=== PATIENT | male | born 1960 | race Caucasian/White ===

== ENCOUNTER 2023-11-26 09:47 | Emergency (ER) | payer MEDICARE, SELFPAY ==
[2023-11-26] VITALS (13 sets, daily range): BP systolic 217–270; BP diastolic 124–170; PULSE 60–86; RESP 7–19; TEMP 36.5; O2SAT 95–98
--- NOTE | 2023-11-26 09:45 | RT.EKG_ITS ---
APPROVED REPORT Exam: Resting ECG Reason for Exam: htn Patient Location: E HR:79 bpm ECG Measurements Heart Rate 79 AXIS LA 164 P 34 QRSd 165 QRS 3 QT 444 T -31 QTc 508 Conclusion Sinus 79, occasional PVC, right bundle branch block, LVH, no STEMI
[2023-11-26 10:08] LABS: Abs Immature Grans 0.02 10^3/uL (0.0-0.06); Absolute Basophil Count 0.08 10^3/uL (0.0-0.2); Absolute Eosinophil Count 0.16 10^3/uL (0.0-0.7); Absolute Lymphocyte Count 2.33 10^3/uL (1.2-3.4); Absolute Monocyte Count 0.73 10^3/uL (0.1-0.8); Absolute Neutrophil Count 3.23 10^3/uL (1.2-6.7); Basophils % 1.2; Eosinophils % 2.4; HCT 53.2 % (40.0-50.0); HGB 17.8 g/dL (13.5-17.5); Immature Grans % 0.3; Lymphocytes % 35.6; MCH 28.3 pg (27.0-33.0); MCHC 33.5 % (32.0-36.0); MCV 84 fL (80-95); MPV 10.1 fL (8.0-11.0); Monocytes % 11.1; Neutrophils % 49.4; Platelet Count 256 10^3/uL (130-400); RDW 14.2 % (11.8-14.1); RDW-SD 43.5 fL; WBC 6.55 10^3/uL (4.4-10.8)
[2023-11-26 10:41] LABS: ALT 32 U/L (16-63); AST 22 U/L (15-37); Albumin 4.2 g/dL (3.4-5.0); Alkaline Phosphatase 80 U/L (46-116); Anion Gap 9.6 mmol/L (3-11); BUN 23 mg/dL (7-18); Bilirubin, Total 0.8 mg/dL (0.2-1.0); CO2 30.4 mmol/L (21.0-32.0); CREATININE 1.1 mg/dL (0.70-1.30); Calcium 9.2 mg/dL (8.5-10.1); Chloride 103 mmol/L (98-107); Estimated GFR 75.43 (mL/min/1.73m2); Glucose 103 mg/dL (74-106); NT-proBNP 215 pg/mL (<300); Potassium 3.8 mmol/L (3.5-5.1); Sodium 143 mmol/L (136-145); Total Protein 8.1 g/dL (6.4-8.2); Troponin I < 50 ng/L (< or =60)
[2023-11-26 10:51] LABS: Bilirubin Negative (Negative); Blood Negative (Negative); Clarity Clear (Clear); Glucose Negative (Negative); Ketones Negative (Negative); Leukocyte Esterase Negative (Negative); Nitrite Negative (Negative); Specific Gravity 1.015 (1.005-1.025); Urobilinogen 0.2 mg/dL (Up to 0.2)
--- NOTE | 2023-11-26 11:06 | ED.GENADUL_ITS ---
Discharge Plan Disposition Patient Disposition: Home Condition: Stable Discharge Details Clinical Impression: Uncontrolled hypertension, Non compliance w medication regimen Primary Care Provider: Douglas Salmeron ED Provider: Darlin Rushing Home Meds and New Rx's Prescriptions: No Action gelatin 600 mg capsule 1,000 mg PO BID Discharge Instructions Instructions: Hypertension (ED) Additional Instructions: Elevated blood pressure increases your risk for stroke, heart attack, renal disease and organ failure. Please follow-up with your primary care provider to discuss medication management for this ongoing disease. HPI General Date/Time Provider Initiated Documentation: 11/26/23 09:57 . Limitations to Documentation: no limitations . Information obtained by: patient . HPI Narrative: 63-year-old gentleman with past medical history of bilateral shoulder arthritis, hypertension and chronic Lyme disease presents for evaluation of elevated blood pressure. The patient was being evaluated in orthopedic clinic today and was referred to the emergency department for evaluation of his elevated blood pressure. The patient does not have any symptoms of high blood pressure. He states that he has not been taking his medication for several months because it makes him feel sick. He denies any symptoms of chest pain, shortness of breath, visual changes. Related Data Home Medications Medication Instructions Recorded Confirmed gelatin 600 mg capsule 1,000 mg PO BID 11/26/23 11/26/23 Allergies Allergy/AdvReac Type Severity Reaction Status Date / Time No Known Allergies Allergy Verified 11/26/23 09:54 General Stated Complaint: GenMedical ERROL: 3 Exam Narrative Exam Narrative: Review of Systems: All systems reviewed & are unremarkable except as noted in HPI and below Well-developed, no acute distress NCAT PERRL, normal conjunctiva RRR + hypertensive Unlabored respiratory effort, clear bilaterally Nondistended abdomen Extremities w/o deformity, no cyanosis, no edema No rashes or lesions. no focal neurologic deficits Appropriate mood and affect Course Vital Signs Vital signs: Vital Signs Temperature 36.5 C 11/26/23 09:51 Pulse 61 11/26/23 09:51 Respiratory Rate 18 11/26/23 09:51 Blood Pressure 266/162 H 11/26/23 09:51 Pulse Oximetry 97 11/26/23 09:51 Temperature 36.5 C 11/26/23 09:51 Temperature Source Skin 11/26/23 09:51 Pulse 75 11/26/23 10:50 Pulse 77 11/26/23 10:51 Respiratory Rate 14 11/26/23 10:51 Respiratory Effort Normal, Non-Labored 11/26/23 10:28 Respiratory Depth Normal 11/26/23 10:28 Respiratory Pattern Normal 11/26/23 10:28 Blood Pressure 247/140 H 11/26/23 10:50 Blood Pressure Mean 180 11/26/23 10:50 Blood Pressure Position Supine 11/26/23 10:28 Pulse Oximetry 95 11/26/23 10:51 Oxygen Delivery Method Room Air 11/26/23 09:51 Oxygen Flow Rate 0 11/26/23 09:51 Lab/Test Results Lab/Test Results: Laboratory Tests Range/Units 11/26/23 11/26/23 10:00 10:45 WBC (4.4-10.8) 10^3/uL 6.55 RBC (4.36-5.78) 10^6/uL 6.30 H Hgb (13.5-17.5) g/dL 17.8 H Hct (40.0-50.0) % 53.2 H MCV (80-95) fL 84 MCH (27.0-33.0) pg 28.3 MCHC (32.0-36.0) % 33.5 RDW (11.8-14.1) % 14.2 H Plt Count (130-400) 10^3/uL 256 MPV (8.0-11.0) fL 10.1 Immature Gran % 0.3 Neutrophils % 49.4 Lymphocytes % 35.6 Monocytes % 11.1 Eosinophils % 2.4 Basophils % 1.2 Nucleated RBC % (0.0-0.3) % 0.0 Absolute Neutrophils (1.2-6.7) 10^3/uL 3.23 Absolute Lymphocytes (1.2-3.4) 10^3/uL 2.33 Absolute Monocytes (0.1-0.8) 10^3/uL 0.73 Absolute Eosinophils (0.0-0.7) 10^3/uL 0.16 Absolute Basophils (0.0-0.2) 10^3/uL 0.08 Sodium (136-145) mmol/L 143 Potassium (3.5-5.1) mmol/L 3.8 Chloride (98-107) mmol/L 103 Carbon Dioxide (21.0-32.0) mmol/L 30.4 Anion Gap (3-11) mmol/L 9.6 BUN (7-18) mg/dL 23 H Creatinine (0.70-1.30) mg/dL 1.1 Est GFR (CKD-EPI 2020) (mL/min/1.73m2) 75.43 Glucose (74-106) mg/dL 103 Calcium (8.5-10.1) mg/dL 9.2 Total Bilirubin (0.2-1.0) mg/dL 0.8 AST (15-37) U/L 22 ALT (16-63) U/L 32 Alkaline Phosphatase (46-116) U/L 80 Troponin I (< or =60) ng/L < 50 NT-Pro-B Natriuret Pep (<300) pg/mL 215 Total Protein (6.4-8.2) g/dL 8.1 Albumin (3.4-5.0) g/dL 4.2 Urine Color (Yellow) Yellow Urine Clarity (Clear) Clear Urine pH (5-8) 7.0 Ur Specific Gateway (1.005-1.025) 1.015 Urine Protein (Neg-Trace) mg/dL Negative Urine Ketones (Negative) mg/dL Negative Urine Blood (Negative) Negative Urine Nitrite (Negative) Negative Urine Bilirubin (Negative) Negative Urine Urobilinogen (Up to 0.2) mg/dL 0.2 Ur Leukocyte Esterase (Negative) Negative Urine Glucose (Negative) mg/dL Negative Medical Decision Making Emergent evaluation of elevated blood pressure. Initial differential includes hypertensive emergency, medication noncompliance, endorgan damage. Patient's blood pressure is noted to be extremely elevated however he is noncompliant with his treatment regimen. He denies any symptoms concerning for hypertensive emergency. The patient has no interest in taking blood pressure medication. He told the nurse that if anyone puts blood pressure medication through his IV he would have their job lab work was evaluated to determine signs of endorgan damage. Everything is within normal limits today. His EKG does demonstrate signs of LVH and hypertension related changes however no acute ischemia. The patient was updated on these results and encouraged to follow-up with his PCP to develop a treatment plan that works for him Medical Records Medical records reviewed: Yes I reviewed the patient's medical records. Lab Data Lab results reviewed: Yes I reviewed the patient's lab results. ECG Data Attestation: I personally reviewed and interpreted this ECG (s) as follows: Prior ECG tracings: not available for review Interpretation: Sinus 79, occasional PVC, right bundle branch block, LVH, no STEMI Quality:SDOH Health Related Social Needs: No Data to Display PFSH All Active Problems Non compliance w medication regimen (Acute) Uncontrolled hypertension (Acute) Osteoarthritis of right glenohumeral joint (Acute) Osteoarthritis of left glenohumeral joint (Acute) Social History Smoking/Tobacco Use Status: Never Smoking risk assessment performed?: Yes Alcohol Intake: never Substance use type: does not use
[2023-11-26 11:16] LABS: *AMPHETAMINES SCREEN URINE Negative (Negative); *BARBITURATES SCREEN URINE Negative (Negative); *BENZODIAZEPINES SCREEN URINE Negative (Negative); Cannabinoids THC Negative (Negative); Cocaine Screen,Urine Negative (Negative); METHADONE URINE SCREEN Negative (Negative); OPIATES URINE SCREEN Negative (Negative)
[2023-11-26 11:17] LABS: Tricyclic Antidepressants Negative (Negative)
== END 2023-11-26 11:07 | disposition home or self-care (01) ==
PROVIDERS: Emergency Provider Emergency Medicine; PCP Family Medicine
DX: I10 Essential (primary) hypertension (principal); I45.19 Other right bundle-branch block; A69.20 Lyme disease, unspecified; Z91.148 Patient's other noncompliance with medication regimen for other reason
CPT/HCPCS: 80053; 80307; 93005; 99214; 99283; 73030; 81003; 83880; 84484; 85025; 93010; 99284

== ENCOUNTER 2023-11-26 14:39 | Outpatient (CLI) | payer MEDICARE, SELFPAY ==
--- NOTE | 2023-11-26 09:00 | DI.RAD_ITS ---
Exam(s) XR SHOULDER RT COMPLETE 2+V EXAM: XR SHOULDER RT COMPLETE 2+V CLINICAL HISTORY: BILATERAL SHOULDER PAIN. TECHNIQUE: 2D digital imaging was performed. Two views. COMPARISON: No exams were available for comparison FINDINGS: BONES: No acute fracture is present. No bony destructive lesion is seen. Degenerative spurring and s ubchondral cysts at the greater tuberosity. JOINTS: No dislocation present. The humeral head is normally positioned. Mild spurring at the AC akhil int and undersurface of the acromion in. Severe narrowing of the glenohumeral joint. Spurring at th e inferior humeral head and glenoid. Subchondral cyst at the inferior glenoid. SOFT TISSUE: Normal. IMPRESSION: Severe degenerative changes of the glenohumeral joint. DATA REPOSITORY: RADIATION DOSE DELIVERED:
--- NOTE | 2023-11-26 09:00 | DI.RAD_ITS ---
Exam(s) XR SHOULDER LT COMPLETE 2+V EXAM: XR SHOULDER LT COMPLETE 2+V CLINICAL HISTORY: BILATERAL SHOULDER PAIN. TECHNIQUE: 2D digital imaging was performed. Two views. COMPARISON: CR XR SHOULDER RT COMPLETE 2+V from 11/26/2023 FINDINGS: BONES: No acute fracture is present. No bony destructive lesion is seen. JOINTS: No dislocation present. Severe narrowing of the glenohumeral joint with a [id number] appea vinay. There is spurring at the inferior humeral head and glenoid. There is also spurring at the ac romioclavicular joint and undersurface of the acromion. SOFT TISSUE: Normal. IMPRESSION: Severe degenerative changes of the glenohumeral joint. DATA REPOSITORY: RADIATION DOSE DELIVERED:
== END 2023-11-26 14:40 | disposition home or self-care (01) ==
LOC: DIORS 14:40
PROVIDERS: PCP Family Medicine; Referring Provider Family Medicine; Visit Provider Student in an Organized Health Care Education/Training Program
DX: M19.012 Primary osteoarthritis, left shoulder; M19.011 Primary osteoarthritis, right shoulder; I10 Essential (primary) hypertension
CPT/HCPCS: 99214; 73030